=== PATIENT | female | born 1935 | race Caucasian/White ===

== ENCOUNTER → 2021-09-20 | Outpatient (CLI) | payer MEDICARE ==
[~2021-09-20] MED LIST: ASPIR 8181 MG PO; BETAPACE80 MG PO; CELEXA20 MG PO; COLACE 100MG C100 MG PO; CORDARONE 200M200 MG PO; ECOTRIN81 MG PO; ELIQUIS5 MG PO; KLONOPIN TAB 00.5 MG PO; KLOR-CON M2020 MEQ PO; MICROZIDE12.5 MG PO; NORCO 5-325 TA1 EACH PO; NORVASC 5 MG TAB5 MG PO; PRAVACHOL20 MG PO; PRINIVIL20 MG PO; SINGULAIR10 MG PO; Voltaren Gel 1 % TOP
== END ==
LOC: HEART 5 09:00
DX: R06.02 Shortness of breath (principal); Z79.899 Other long term (current) drug therapy; R94.2 Abnormal results of pulmonary function studies
CPT/HCPCS: 94060; 94729

== ENCOUNTER → 2021-10-10 | Outpatient (CLI) | payer MEDICARE ==
[~2021-10-10] MED LIST changes: +CARVEDILOL3.125 MG PO; +HYDROCHLOROTHIA25 MG PO; +LEVOTHYROXINE25 MC1 PO
[2021-10-10 08:50] LABS: HEMOGLOBIN 12.4 gm/dl (12.3-15.3); RED BLOOD COUNT 3.64 M/UL (4.00-5.10); WHITE BLOOD COUNT 4.8 K/UL (4.5-11.0)
== END | disposition home or self-care (01) ==
LOC: CATH 07:30
PROVIDERS: Internal Medicine Cardiovascular Disease
DX: I48.19 Other persistent atrial fibrillation (principal); I12.9 Hypertensive chronic kidney disease with stage 1 through stage 4 chronic kidney disease, or unspecified chronic kidney disease; N18.9 Chronic kidney disease, unspecified; Z86.73 Personal history of transient ischemic attack (TIA), and cerebral infarction without residual deficits; Z79.01 Long term (current) use of anticoagulants; Z79.899 Other long term (current) drug therapy; Z88.0 Allergy status to penicillin; Z88.2 Allergy status to sulfonamides; Z88.5 Allergy status to narcotic agent
CPT/HCPCS: 36415; 80048; 85027; 92960; 93005; J1200; J1742; J2250; J2310; J3010; J7040

== ENCOUNTER → 2021-10-12 | Outpatient (CLI) | payer MEDICARE | LOC: HEART 5 13:29 | DX: I48.19 Other persistent atrial fibrillation (principal); R60.9 Edema, unspecified; R06.02 Shortness of breath; I08.1 Rheumatic disorders of both mitral and tricuspid valves; I27.20 Pulmonary hypertension, unspecified | CPT/HCPCS: 93306 ==

== ENCOUNTER → 2021-11-07 | Outpatient (CLI) | payer MEDICARE | LOC: EXRD 11:00 | DX: E03.8 Other specified hypothyroidism (principal); Z88.0 Allergy status to penicillin; Z88.2 Allergy status to sulfonamides; E04.2 Nontoxic multinodular goiter | CPT/HCPCS: 76536 ==